=== PATIENT | female | born 1980 | race Caucasian/White ===

== ENCOUNTER 2017-08-02 11:47 | Emergency (ER) | payer BC ==
[2017-08-02] MEDS ORDERED: Propofol 1,000 MG/100 ML VIAL IV ONE (11:53)
[2017-08-02] MEDS ORDERED: niCARdipine 20MG In NaCl 20 MG/200 ML BAG ONE (11:59)
[2017-08-02 12:00] LABS: #Basophils 0.1 thou/uL (0.0-0.2); #Eosinphils 0.1 thou/uL (0.0-0.7); #Lymphocytes 5.1 thou/uL (1.20-3.40); #Monocytes 0.8 thou/uL (0.11-0.59); %Basophils 1.1 % (0.0-1.0); %Eosinophils 0.8 % (0.0-10.0); %Lymphocytes 45.8 % (21.0-51.0); %Monocytes 6.8 % (0.0-10.0); Hematocrit 41.6 % (36.0-47.0); Mean Platelet Volume 7.4 fL (7.4-10.4); Red Blood Cell (RBC) Count 4.32 mill/uL (4.20-5.40)
[2017-08-02 12:25] LABS: ALT (SGPT) 18 U/L (8-55); AST (SGOT) 24 U/L (5-34); Alkaline Phosphatase 58 U/L (40-150); Anion Gap 16 mmol/L (10-20); BUN (Urea Nitrogen) 11 mg/dL (7.0-18.7); Bilirubin, Total 0.3 mg/dL (0.2-1.2); Calc. Creatinine Clearance 0 mL/min (70-130); Calcium 9.3 mg/dL (7.8-10.44); Carbon Dioxide 18 mmol/L (22-29); Chloride 107 mmol/L (98-107); Estimated GFR-MDRD 85; Protein, Total 7.8 g/dL (6.0-8.3)
[2017-08-02 12:29] LABS: Troponin I 0.019 ng/mL (< 0.028)
[2017-08-02 12:36] LABS: Acetaminophen Less than 6.0 mcg/mL (10.0-30.0); Salicylate Less than 8.0 mg/dL (15.0-30.0)
--- NOTE | 2017-08-02 12:44 | RAD ---
PORTABLE AP CHEST X-RAY 08/02/2017 HISTORY: Unresponsive and intubated. COMPARISON: None available. FINDINGS: Endotracheal tube is noted in place with the tip overlying T4-5 level and above the level of the car emil. Nasogastric tube is noted in place which is incompletely imaged but courses into the left uppe r quadrant. Pacing device overlies the right chest. There is increased interstitial opacity seen in the left lung asymmetric to the right. Findings cou ld be related to infectious process. There is no pneumothorax or pleural effusion. Cardiac silhoue tte and pulmonary vasculature are within normal limits. Osseous structures are intact. IMPRESSION: 1. Increased interstitial and alveolar opacities within the left lung, greater in the left midlung z one and left lung base which could be related to pneumonia. Follow-up to complete resolution is rec ommended. 2. Endotracheal tube and nasogastric tube in place. POS: [facility]
--- NOTE | 2017-08-02 12:50 | CT ---
CT OF BRAIN PERFORMED WITHOUT CONTRAST ENHANCEMENT: HISTORY: The patient found unresponsive in classroom. FINDINGS: There is extensive subarachnoid hemorrhage. This appears to be centered slightly more towards the r ight side of the [place]. There is interventricular blood in the right lateral ventricle. There is some slight dilatation to the lateral ventricles. The sulci appear slightly effaced, alth ough this may just be age-related. There is no mass effect or intraparenchymal hemorrhage seen. No signs of subdural blood. IMPRESSION: Extensive subarachnoid hemorrhage, very suspicious for aneurysm or vascular malformation. Findings telephoned to Dr. Santana. POS: OFF
[2017-08-02] MEDS ORDERED: Fluorescein Opthalmic Strip ONE ×2 (12:52→12:54)
[2017-08-02] MEDS ORDERED: Proparacaine 0.5% Opth 15 ML BOT ONE (12:54)
--- NOTE | 2017-08-02 12:55 | CT ---
NONCONTRAST CT CERVICAL SPINE 08/02/2017 HISTORY: The patient round unresponsive in classroom. TECHNIQUE: Contiguous axial CT images are obtained through the cervical spine from the skull base to the level of the T4 vertebral body. Sagittal and coronal reformatted images are provided. FINDINGS: Endotracheal tube and nasogastric tube are noted in place. There is no fracture or subluxation involving the cervical spine. Prevertebral soft tissues are wit hin normal limits. There is partial visualization of parenchymal lung changes in the posterior aspect of the left upper lobe which could be related to pneumonia. Aspiration pneumonitis is a possibility. IMPRESSION: 1. No fracture or subluxation involving the cervical spine. 2. Parenchymal changes in the visualized left upper lobe which may be related to pneumonia. Follow- up to resolution is recommended. Aspiration pneumonitis cannot be excluded. POS: [facility]
--- NOTE | 2017-08-02 13:01 | RAD ---
PORTABLE AP CHEST X-RAY 08/02/2017 HISTORY: Central line placement, trauma. FINDINGS: Compared to study on 08/02/2017 at 1124 hours. FINDINGS: Endotracheal tube and nasogastric tube remain in place and unchanged in position. The tip of the na sogastric tube overlies the expected location of the fundus of the stomach. There has been interval placement of a right subclavian central venous catheter with tip overlying the right atrium. No pn eumothorax is seen. The cardiac silhouette is magnified by projection. Again noted is increased interstitial and alveol ar opacity throughout the left lung with mild increased interstitial opacities on the right. Findin gs could be related to either asymmetric pulmonary edema or infectious process. Aspiration pneumoni tis on the left cannot be entirely excluded. IMPRESSION: 1. Lines and tubes in place as described above. There is no pneumothorax seen. 2. Increased interstitial opacities bilaterally with alveolar opacities seen on the left and primari ly in the left upper lung zone and at the left lung base. Findings could be related to asymmetric p ulmonary edema or infectious process. Aspiration pneumonitis on the left could not be excluded. POS: [facility]
[2017-08-02] MEDS ORDERED: Gentamicin Ophth Soln 0.3% 5 ml Bottle ONE (13:09)
[2017-08-02 13:13] LABS: Bilirubin Negative (Negative); Blood, Urine Large (Negative); Glucose, Urine (Dipstick) 250 mg/dL (Negative); Ketone, Urine 15 mg/dL (Negative); Nitrite Negative (Negative); Protein, Urine (Dipstick) 100 mg/dL (Neg-Trace); Urobilinogen 0.2 mg/dL (0.2-1.0)
[2017-08-02] MEDS ORDERED: Gentamicin Ophth Soln 0.3% 5 ml Bottle EA EYE SCH (13:15)
[2017-08-02 13:16] LABS: Bacteria/HPF None Seen HPF (None Seen); Hyaline Casts/LPF 0-3 HYALINE CAST LPF (0-3 Hyaline); RBC/HPF 0-3 HPF (0-3); Squamous Epithelial 0-3 HPF (0-3); WBC/HPF 0-3 HPF (0-3)
[2017-08-02 13:22] LABS: Amphetamine Not Detected (NotDetected); Methadone Not Detected (NotDetected); Methamphetamine Not Detected (NotDetected)
[2017-08-02 13:26] LABS: Renal Epithelial None Seen HPF (0-3); Transitional Epithelial NONE SEEN HPF (0-3)
--- NOTE | 2017-08-02 13:34 | CT ---
CT ANGIOGRAM HEAD WITH IV CONTRAST AND 3D RECONSTRUCTIONS: Date: 08/02/17 HISTORY: Intracranial hemorrhage. COMPARISON: Noncontrast CT head on 08/02/17. FINDINGS: There is a saccular aneurysm seen involving the P2 segment of the right posterior cerebral artery at the level of the right posterior cerebral peduncle. This measures 6.0 mm AP x 4.8 mm transverse x 5 .0 mm craniocaudal. This is centered in the region of greatest area of hemorrhage in the right cereb ral hemisphere. The left posterior cerebral artery is patent without evidence of an aneurysm. There is focal short segment area of narrowing involving the distal left vertebral artery at the lev el of the segment just proximal to the intracranial portion of the distal left vertebral artery. Thi s area of severe narrowing could be related to focal dissection. While the exact length is difficult to measure, this length measures at least 1.4 cm. Basilar artery distal to this region is normal in caliber. Distal right vertebral artery, as well as basilar arteries, are patent. There is a focal saccular aneurysm seen involving the left supraclinoid internal carotid artery whic h measures approximately 4.0 mm. The visualized internal carotid arteries are patent bilaterally. The bilateral middle cerebral and a nterior cerebral arteries are patent. No additional aneurysm is visualized. The subarachnoid and intraventricular hemorrhage noted on prior noncontrasted CT scan exam is also s een on this exam. Endotracheal tube and nasogastric tubes are noted in place. IMPRESSION: 1. 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 2. Small focal saccular aneurysm involving the clinoid\E\supraclinoid left internal carotid artery. 3. Focal short segment of narrowing involving the left vertebral artery proximal to the intradural portion of the left vertebral artery, which could potentially represent a focal dissection of the le ft vertebral artery. 4. Subarachnoid and intraventricular hemorrhage. Above findings discussed with Dr. Santana in the emergency department on 08/02/17 at 1239 hours. CODE CR. POS: [facility]
[2017-08-02] MEDS ORDERED: Vecuronium 10 MG VIAL ONE (13:43)
[2017-08-02] MEDS ORDERED: Diazepam 10 MG/2 ML SYRINGE ONE (13:43)
[2017-08-02] MEDS ORDERED: Sterile Water 20 ML ONE (13:44)
[2017-08-02] MEDS ORDERED: Tranexamic Acid 1,000 MG in Sodium Chloride 0.9% 100 ML IVPB SCH (13:45)
[2017-08-02] MEDS ORDERED: levETIRAcetam In NaCl (Iso-Os) 1,000 MG in Premix Bag 1 BAG IVPB SCH ×2 (14:00)
--- NOTE | 2017-08-02 14:32 | RAD ---
SINGLE VIEW OF CHEST: Date: 08/02/17 COMPARISON: 08/02/17. HISTORY: Dyspnea. FINDINGS: Single view of the chest shows a normal sized cardiomediastinal silhouette. The central venous rola ter, endotracheal tube, and NG tube are unchanged in position. There is an infiltrate in the left [place] ng which appears to be slightly worsening. IMPRESSION: Worsening left pulmonary infiltrate. POS: [facility]
[2017-08-02 15:33] LABS: Modified Allen's Test NOT DONE; Sodium 136 mmol/L (135-148); Vent YES
[2017-08-02 15:34] LABS: Mechanical Tidal Volume 500 ml; Mode IMV
--- NOTE | 2017-08-02 15:39 | PRG ---
DATE OF SERVICE: 08/02/2017 This is a 50-minute initial hospital visit note, in which 50 minutes were spent in review of the imaging record, evaluation, and examination of the patient, and formulation of plan. Greater than 50% of time was spent in counseling on Elio Campos, 1980. 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 She had headache late this morning and took nonsteroidals and then upon returning dismissed the children to rece. She was then found down approximately 5 minutes later by the school nurse and unresponsive. CPR was initiated. EMS was activated and the patient was intubated and brought to [facility] for further evaluation. Head CT demonstrates a thick ventricular clot more eccentric to the right with a subarachnoid hemorrhage throughout the basal cisterns and sylvian fissure with ventricular enlargement. Head CT angiogram demonstrated approximately 4 mm left cavernous carotid aneurysm incidentally found, but a right-sided 6 mm aneurysm in the region of the anterior choroidal artery. There is hematoma surrounding it. My concern is this is an intranidal aneurysm associated with an AVM, although could be a very unusual location for an aneurysm not associated with an AVM. Nevertheless, the patient's blood pressure, by report, 220/150, and the patient was GCS 3T. Of note, a CT of the cervical spine was negative for acute abnormality. On my exam , the patient is on propofol. I have asked for it to be turned off that the patient's exam remains quite poor. She is intubated, her eyes are open, there is evidence of conjunctival injection, and scleral redness consistent with elevated intracranial pressure. She has no corneal responses and she does not respond to noxious stimuli in her upper or lower extremities. IMPRESSION AND PLAN: I have let the family know that this is a catastrophic hemorrhage. I am concerned about aneurysm rupture. I have asked that the systolic blood pressure be kept under 140, and they are working towards that with nicardipine. I will remove her cervical collar and maintain her head of bed at 30 degrees to minimize intracranial pressure, and I have also consented the patient's family for emergent placement of an external ventricular drain. Following this, as long as the patient is stable enough for transport, she will need to be transported, as I am not able to perform diagnostic or therapeutic cerebral angiography at this time. We will arrange for transfer to a center that will allow that. The family understands that the prognosis is quite guarded and understands that we will do everything we can to save her life. The informed consent was discussed and the family understands the emergent nature of the placement of external ventricular drain. DIAGNOSES: 1. 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 2. Hypertension. MTDD
[2017-08-02] MEDS ORDERED: ISOVUE-370 76%-LOCM 1 ML ONE (16:02)
--- NOTE | 2017-08-02 16:37 | OP ---
DATE OF PROCEDURE: 08/02/2017 LOCATION OF THE PROCEDURE: Emergency room. PREPROCEDURE DIAGNOSES: Catastrophic subarachnoid hemorrhage with intraventricular hemorrhage with intracranial hypertension with threat to life, presumed aneurysm rupture. POSTPROCEDURE DIAGNOSES: Catastrophic subarachnoid hemorrhage with intraventricular hemorrhage with intracranial hypertension with threat to life, presumed aneurysm rupture. PROCEDURE: Placement of external ventricular drain to relieve intracranial pressure. PROCEDURE IN DETAIL: After the emergent nature conveyed to the family, the right frontal Giovanny's p oint was identified and hair was clipped in this region. This area was sterilely cleansed, prepared and draped, and a following proper patient pause and identification a small incision was made in th e right frontal region and the skull was perforated and the dura opened. The ventricular drain was passed with 1 pass with return of bloody CSF under significant pressure. Some CSF was released, but immediately then connected to the Mendoza drain system and set at 10 cm of water or just over 7 mmHg . Bloody CSF was returned and again as soon as the ventriculostomy was placed the patient's exam di d improve in that the patient was turning the head back and forth and moving the right upper extremi ty and bilateral lower extremities, all weakly, but she was moving. We did not see any movement of the left upper extremity. The wound was again sterilely cleansed and closed and the EVD secured to her skull. I also educated our transport team in regards to proper transport of the patient with ex ternal ventriculostomy. She is being transferred for higher level of care in particular angiography for diagnostic and possibly therapeutic purposes as we did not have the ability to do that at this time. I discussed all this with the patient's family.
== END 2017-08-02 15:05 | disposition short-term general hospital (02) ==
LOC: ERS 11:47
DX: I46.9 Cardiac arrest, cause unspecified (principal); I60.7 Nontraumatic subarachnoid hemorrhage from unspecified intracranial artery; I10 Essential (primary) hypertension; G43.909 Migraine, unspecified, not intractable, without status migrainosus
CPT/HCPCS: 36556; 51702; 70450; 70496; 71010; 72125; 80053; 80306; 80307; 81003; 81015; 81025; 82553; 82805; 84443; 84484; 85025; 93005; 94002; 96365; 96366; 96368; 96375; 99292; A4216; J1953; J2704; J3360; J7050